=== PATIENT | male | born 1980 | race Caucasian/White ===

== ENCOUNTER 2020-03-07 13:38 | Inpatient (IN) | payer OTHER ==
[~2020-03-07] VITALS: Ht 180.3 cm; Wt 71.2 kg
--- NOTE | 2020-03-07 13:55 | NUR ---
YOUNGA RA[address] Homeless found on [address] c/o leg/foot pain". Patient a/ox4, breathing even and unlabored, no sob noted. Needs attended, kept comfortable.
[2020-03-07] MEDS ORDERED: ACETAMINOPHEN ES 500 MG TABLET PO ONE (14:00)
[2020-03-07] MEDS ORDERED: IV NS 0.9% 1,000 ML BAG IV ONE (14:00)
[2020-03-07] MEDS ORDERED: Thiamine 100 MG in IV D5W 50 ML IV SCH (14:00)
[2020-03-07] MEDS ORDERED: ACETAMINOPHEN ES 500 MG TABLET ONE (14:46)
[2020-03-07 14:54] LABS: BASOPHILS % (AUTO) 0.6 % (0.0-2.0); EOSINOPHILS % (AUTO) 0.2 % (0.0-6.0); HEMATOCRIT 47 % (39-51); HEMOGLOBIN 15.8 g/dL (13.5-17.5); LYMPHOCYTES # (AUTO) 1.5 /CMM (0.8-4.8); LYMPHOCYTES % (AUTO) 24.1 % (20.0-44.0); MEAN CORPUSCULAR HGB CONC 34 g/dl (31.0-36.0); MEAN CORPUSCULAR VOLUME 97 fL (80-96); MONOCYTES # (AUTO) 0.4 /CMM (0.1-1.30); NEUTROPHILS # (AUTO) 4.3 /CMM (1.8-8.9); NEUTROPHILS % (AUTO) 69.1 % (43.0-81.0); PLATELET COUNT (AUTO) 277 /CMM (150-450); RED BLOOD CELL COUNT(AUTO) 4.84 MIL/uL (4.5-6.0); WHITE BLOOD COUNT (AUTO) 6.2 K/uL (4.3-11.0)
[2020-03-07 15:14] LABS: CALCIUM, SERUM 8.8 mg/dL (8.5-10.1); CARBON DIOXIDE 27 mmol/L (21-32); CHLORIDE 100 mmol/L (98-107); CREATININE 1.4 mg/dL (0.6-1.3); GLUCOSE 100 mg/dL (74-106); POTASSIUM 4.6 mmol/L (3.5-5.1); SODIUM SERUM 139 mmol/L (136-145); UREA NITROGEN, BLOOD 13 mg/dL (7-18)
[2020-03-07] MEDS ORDERED: BUPR1FIL3 SL (15:15)
[2020-03-07 15:29] LABS: B-TYPE NATRIURETIC PEPTIDE 71 PG/ML (0-125)
--- NOTE | 2020-03-07 15:30 | NUR ---
COVID PCR SWAB DONE AND SENT TO LAB
[2020-03-07 16:49] LABS: APPEARANCE,URINE Clear (CLEAR); BILIRUBIN,URINE Negative (NEGATIVE); BLOOD, URINE Moderate Ery/uL (NEGATIVE); COLOR,URINE Yellow (YELLOW); KETONES,URINE Negative (NEGATIVE); LEUKOCYTE ESTERASE ,URINE Negative (NEGATIVE); NITRITE, URINE Negative (NEGATIVE); PH,URINE 6.5 (5.0-8.0); PROTEIN,URINE 30 mg/dl (NEGATIVE); UGLUCOSE Negative (NEGATIVE)
[2020-03-07] MEDS ORDERED: CIPROFLOXACIN HCL 500 MG TABLET ONE (16:59)
[2020-03-07] MEDS ORDERED: LORAZEPAM INJ 2 MG/ML VIAL ONE (17:00)
[2020-03-07] MEDS ORDERED: IV LR 1000 ML 1,000 ML IV ONE ×2 (17:00→17:30)
[2020-03-07] MEDS ORDERED: VANCOMYCIN HCL 1.25 GM in IV D5W 260 ML IV ONE (17:00)
[2020-03-07] MEDS ORDERED: CIPROFLOXACIN HCL 500 MG TABLET PO ONE (17:00)
[2020-03-07] MEDS ORDERED: LORAZEPAM INJ 2 MG/ML VIAL IV ONE (17:00)
[2020-03-07 17:04] LABS: BACTERIA,URINE Few /HPF (None Seen); SQUAMOUS EPITHELIAL CELL,UR Few /HPF (None Seen); WBC,URINE 0-2 /HPF (0-3)
--- NOTE | 2020-03-07 17:28 | NUR ---
FOOD TRAY PROVIDED. PATIENT TOLERATING PO WELL
[2020-03-07] MEDS ORDERED: MAGNESIUM HYDROXIDE 30 ML UDC PO PRN (18:00)
[2020-03-07] MEDS ORDERED: MAG HYDROX/AL HYDROX/SIMETH 30 ML UDC PO PRN (18:00)
[2020-03-07] MEDS ORDERED: ONDANSETRON HCL/PF 4 MG/2 ML VIAL IVP PRN (18:00)
[2020-03-07] MEDS ORDERED: Z GUARD REMEDY 2 OZ OINT TP PRN (18:00)
--- NOTE | 2020-03-07 18:14 | NUR ---
REPORT GIVEN TO JENNIFER WRAY OF [facility] UNIT
--- NOTE | 2020-03-07 18:16 | NUR ---
SPOKE TO [facility] [phone] FOR CLINICALS.
[2020-03-07 18:22] LABS: BILIRUBIN,DIRECT 0.2 mg/dL (0.0-0.2); BILIRUBIN,TOTAL 0.6 mg/dL (0.2-1.0)
[2020-03-07 18:41] LABS: ALBUMIN 3.6 g/dL (3.4-5.0); BILIRUBIN,DIRECT 0.3 mg/dL (0.0-0.2); BILIRUBIN,TOTAL 0.5 mg/dL (0.2-1.0); TOTAL PROTEIN, SERUM 8.7 g/dL (6.4-8.2)
--- NOTE | 2020-03-07 18:48 | NUR ---
[address] [place] [address]
--- NOTE | 2020-03-07 19:45 | NUR ---
RN ADMITTING NOTES PATIENT RECEIVED VIA GURNEY ACCOMPANIED BY ER STAFF. PATIENT A/O X 4. STABLE ON RA WITH BREATHING EVEN AND UNLABORED, NO SOB NOTED. NO SIGNS OF ACUTE DISTRESS. COMPLAINTS OF PAIN IN BLE 04/05. VITALS TAKEN 140/84 HR 64 RR 18 T 99.4 O2 98%. BELONGINGS ACCOUNTED FOR. SKIN ASSESSMENT DONE, PICTURES TAKEN. IV LOCATED ON [facility] #20. PATIENT ORIENTED TO ROOM AND STAFF. SAFETY PRECAUTIONS IN PLACE WITH BED IN LOWEST POSITION, CALL LIGHT WITHIN REACH, BREAKS ON, SIDE RAILS UP. WILL CONTINUE TO MONITOR THROUGHOUT THE NIGHT.
[2020-03-07 19:50] VITALS: BP 140/84
[2020-03-07] MEDS: IV NS 0.9% 1,000 ML IV PRN (20:14)
[2020-03-07] MEDS: ENOXAPARIN SODIUM 40 MG/0.4 ML DISP.SYRIN SQ SCH (20:15)
[2020-03-07] MEDS: MORPHINE SULFATE INJ 2 MG/ML DISP.SYRIN IV SCH (20:31)
[2020-03-08] MEDS: MORPHINE SULFATE INJ 2 MG/ML DISP.SYRIN IV SCH ×5 (00:39→20:08)
[2020-03-08] MEDS: VANCOMYCIN 1 GM in IV D5W 250 ML IV SCH ×2 (05:05→17:27)
[2020-03-08] MEDS: IV NS 0.9% 1,000 ML IV PRN ×2 (05:07→16:13)
--- NOTE | 2020-03-08 07:34 | NUR ---
RN CLOSING NOTES PATIENT RESTING IN BED A/O X 4. STABLE ON RA WITH BREATHING EVEN AND UNLABORED, NO SOB NOTED. NO SIGNS OF ACUTE DISTRESS. IV LOCATED ON [facility] #20 RUNNING NS @ 100 ML/HR. SAFETY PRECAUTIONS IN PLACE WITH BED IN LOWEST POSITION, CALL LIGHT WITHIN REACH, BREAKS ON, SIDE RAILS UP. ALL NEEDS ATTENDED TO. WILL ENDORSE TO ONCOMING SHIFT ABOUT GABRIEL.
[2020-03-08 07:41] LABS: BASOPHILS % (AUTO) 0.6 % (0.0-2.0); EOSINOPHILS % (AUTO) 2.5 % (0.0-6.0); HEMATOCRIT 41 % (39-51); HEMOGLOBIN 13.8 g/dL (13.5-17.5); LYMPHOCYTES # (AUTO) 1.2 /CMM (0.8-4.8); LYMPHOCYTES % (AUTO) 32.5 % (20.0-44.0); MEAN CORPUSCULAR HGB CONC 34 g/dl (31.0-36.0); MEAN CORPUSCULAR VOLUME 97 fL (80-96); MONOCYTES # (AUTO) 0.3 /CMM (0.1-1.30); MONOCYTES % (AUTO) 7.6 % (2.0-12.0); NEUTROPHILS # (AUTO) 2.1 /CMM (1.8-8.9); NEUTROPHILS % (AUTO) 56.8 % (43.0-81.0); PLATELET COUNT (AUTO) 168 /CMM (150-450); RED BLOOD CELL COUNT(AUTO) 4.23 MIL/uL (4.5-6.0); WHITE BLOOD COUNT (AUTO) 3.7 K/uL (4.3-11.0)
[2020-03-08 07:48] LABS: ALBUMIN 2.7 g/dL (3.4-5.0); BILIRUBIN,DIRECT 0.3 mg/dL (0.0-0.2); BILIRUBIN,TOTAL 0.9 mg/dL (0.2-1.0); CALCIUM, SERUM 8.2 mg/dL (8.5-10.1); CREATININE 0.7 mg/dL (0.6-1.3); MAGNESIUM 1.8 mg/dL (1.8-2.4); PHOSPHORUS 3.8 mg/dL (2.5-4.9); POTASSIUM 4.1 mmol/L (3.5-5.1); TOTAL PROTEIN, SERUM 6.7 g/dL (6.4-8.2)
[2020-03-08 07:55] LABS: THYROID STIMULATING HORMONE 4.565 uIU/mL (0.358-3.74)
[2020-03-08] MEDS: FOLIC ACID 1 MG TABLET PO SCH (08:16)
[2020-03-08] MEDS: THIAMINE HCL 100 MG TABLET PO SCH (08:16)
[2020-03-08 08:31] VITALS: BP 147/88
[2020-03-08] MEDS: LORAZEPAM INJ 2 MG/ML VIAL IV PRN (12:04)
[2020-03-08] MEDS: GABAPENTIN 100 MG CAPSULE PO SCH ×2 (12:04→16:13)
--- NOTE | 2020-03-08 14:50 | NUR ---
TRANSFER NOTES RECEIVED PATIENT VIA GURNEY A/O X 4 WITH NO SIGNS OF DISTRESS AND NO SOB. VITAL SIGNS WITHIN NORMAL LIMIT. IV [facility] #20G INTACT. PATIENT IS CURRENTLY COMPLAINING OF BILATERAL FOOT PAIN 9/10 PAIN SCALE. ORIENTED TO HIS ROOM CALL LIGHT WITHIN REACH. SAFETY MEASURES ARE APPLIED BED IS LOCKED AND LOW POSITION. SIDE RAILS UP X 2 FOR SAFETY. WILL CONTINUE TO MONITOR.
[2020-03-08 15:00] VITALS: BP 143/98
--- NOTE | 2020-03-08 15:10 | NUR ---
rn notes patient transferred to [facility] to [facility] [place].
--- NOTE | 2020-03-08 19:26 | NUR ---
MS RN CLOSING NOTES PATIENT IS A/O X 4 WITH NO SIGNS OF DISTRESS AND NO SOB IN ROOM AIR. IV L HAND #22G INTACT RUNNING NS AT 100 ML/HR. PATIENT REMAINED STABLE THROUGH OUT SHIFT. PATIENT KEPT CLEAN AND DRY. ALL NEEDS, CARE, TREATMENT AND MEDICATIONS ADMINISTERED ANTICIPATED PER ORDER. SAFETY MEASURES ARE APPLIED BED IS LOCKED AND LOW POSITION. SIDE RAILS UP X 2 FOR SAFETY. WILL ENDORSE TO THE NEXT PLASTIC BLOCK BOILER RELINER.
--- NOTE | 2020-03-08 19:48 | NUR ---
MS RN CLOSING NOTES PATIENT RESTING IN BED COMFORTABLY; A/OX4, BREATHING EVEN AND UNLABORED; TOLERATING ROOM AIR WELL; NO SOB NOTED; PATIENT ABLE TO MAKE NEEDS KNOWN; PATIENT COMPLAINING OF 10/10 GENERALIZED PAIN; VITALS STABLE; PATIENT INFORMED PAIN MED NOT YET DUE AT THIS TIME; PATIENT VERBALIZED UNDERSTANDING; L HAND # 22 INFUSING NS @ 100ML/HR; TOLERATING IVF WELL; SAFETY PRECAUTIONS IMPLEMENTED; BED LOCKED IN LOW POSITION; SIDE RAILSX2; CALL LIGHT WITHIN EASY REACH; WILL CONT TO MONITOR Addendum: 03/08/20 at 1949 by ARVIND MART RN MS RN OPENING NOTES*
[2020-03-08 20:00] VITALS: BP 146/97
[2020-03-08] MEDS: ENOXAPARIN SODIUM 40 MG/0.4 ML DISP.SYRIN SQ SCH (20:07)
[2020-03-08] MEDS: MUPIROCIN OINT 2% 22 GM TUBE NS SCH (20:15)
--- NOTE | 2020-03-08 20:23 | NUR ---
MS RN NOTES PATIENT COMPLAINT OF GENERALIZED AND BILATERAL FEET PAIN, 10/10, VITALS STABLE; PATIENT A/OX4, ABLE TO MAKE NEEDS KNOWN; MORPHINE ADMINISTERED PER MD ORDER; WILL CONT TO MONITOR
[2020-03-09 04:20] LABS: CALCIUM, SERUM 8.5 mg/dL (8.5-10.1); CREATININE 0.8 mg/dL (0.6-1.3); POTASSIUM 4.3 mmol/L (3.5-5.1)
[2020-03-09] MEDS: MORPHINE SULFATE INJ 2 MG/ML DISP.SYRIN IV SCH ×5 (04:27→20:38)
--- NOTE | 2020-03-09 04:33 | NUR ---
MS WRAY NOTES PATIENT IV OBTAINED, L INDEX FINGER #24; FLUSHING WELL; PER PATIENT, HE HAS BEEN GETTING MULTIPLE IV ACCESS PER SHIFT; PER DARIEN PATEL FOR MIDLINE INSERTION; WILL INFORM NURSING STUNNER ANIMAL Addendum: 03/09/20 at 0442 by ARVIND MART RN PATIENT COMPLAINT OF 04/05 PAIN; REQUESTING MORPHINE, PATIENT ABLE TO MAKE NEEDS KNOWN; A/OX4, BREATHING EVEN AND UNLABORED; MORPHINE IVP ADMINISTERED PER ORDER; WILL CONT TO MONITOR
[2020-03-09] MEDS: VANCOMYCIN 1 GM in IV D5W 250 ML IV SCH (04:43)
--- NOTE | 2020-03-09 06:36 | NUR ---
MS RN CLOSING NOTES PATIENT RESTING IN BED COMFORTABLY; A/OX4, BREATHING EVEN AND UNLABORED; NO SOB NOTED; TOLEARTING ROOM AIR WELL; L HAND # 24 INFUSING NS @ 100 ML/HR; TOLERATING WELL; ALL NEEDS RENDERED; PATIENT ABLE TO MAKE NEEDS KNOWN; MIDLINE INSERTION FOR LATER IN AM; NURSING INFIRMARY ATTENDANT AND CHARGE NURSE BOTH AWARE; WILL INFORM DAY SHIFT; SAFETY PRECAUTIONS IMPLEMENTED; BED LOCKED IN LOW POSITION; SIDE RAILSX2; CALL LIGHT WITHIN REACH; WILL ENDORSE TO ONCOMING SHIFT
--- NOTE | 2020-03-09 07:30 | NUR ---
MS/RN OPENING NOTE Received patient awake in bed, A&O x 4. Reports pain of 10/10 on BLE, last morphine given at 0457, will give medication once it is due. Nonpharmacological interventions done, such as teaching patient deep breathing exercises. Breathing even and non-labored on RA, no SOB noted. No cardiac distress noted. IV access located on L index finger #24, patent and intact, and flushing well. Midline access ordered and scheduled for today. Redness on left inner thigh noted. Sensation from all peripheral extremities intact. Bed locked to its lowest position, side rails x 2 up, bed alarm on, call light in reach. Instructed pt to use call light. Will continue with current medical management.
[2020-03-09 08:00] VITALS: BP 143/75
[2020-03-09] MEDS: FOLIC ACID 1 MG TABLET PO SCH (08:06)
[2020-03-09] MEDS: GABAPENTIN 100 MG CAPSULE PO SCH (08:06)
[2020-03-09] MEDS: THIAMINE HCL 100 MG TABLET PO SCH (08:06)
[2020-03-09] MEDS: MUPIROCIN OINT 2% 22 GM TUBE NS SCH ×2 (08:07→20:28)
[2020-03-09 09:13] LABS: BASOPHILS % (AUTO) 0.7 % (0.0-2.0); EOSINOPHILS % (AUTO) 4.6 % (0.0-6.0); HEMATOCRIT 42 % (39-51); HEMOGLOBIN 13.7 g/dL (13.5-17.5); LYMPHOCYTES # (AUTO) 0.8 /CMM (0.8-4.8); LYMPHOCYTES % (AUTO) 31.2 % (20.0-44.0); MEAN CORPUSCULAR HGB CONC 33 g/dl (31.0-36.0); MEAN CORPUSCULAR VOLUME 98 fL (80-96); MONOCYTES # (AUTO) 0.2 /CMM (0.1-1.30); MONOCYTES % (AUTO) 6.8 % (2.0-12.0); NEUTROPHILS # (AUTO) 1.5 /CMM (1.8-8.9); NEUTROPHILS % (AUTO) 56.7 % (43.0-81.0); PLATELET COUNT (AUTO) 140 /CMM (150-450); RED BLOOD CELL COUNT(AUTO) 4.34 MIL/uL (4.5-6.0); WHITE BLOOD COUNT (AUTO) 2.6 K/uL (4.3-11.0)
--- NOTE | 2020-03-09 10:26 | NUR ---
MS/RN NOTE Hospitalist called, stated to order psych consult for patient due to hx of bipolar disorder. Sent GPS the face sheet and psych referral for Dr. Lopez.
[2020-03-09] MEDS: GABAPENTIN 300 MG CAPSULE PO SCH ×2 (12:01→16:35)
--- NOTE | 2020-03-09 12:25 | NUR ---
RT EKG PER DR LOPEZ PERFORMED AT 12:23. RESULTS AND COPY GIVEN TO NILS CATALAN. NORMAL SINUS RHYTHM.
[2020-03-09 12:30] LABS: EOSINOPHILS % (MANUAL) 6 % (0-4); LYMPHOCYTES % (MANUAL) 28 % (16-48); MONOCYTES % (MANUAL) 5 % (0-11.0); NEUTROPHILS % (MANUAL) 61 (42-76)
--- NOTE | 2020-03-09 12:45 | NUR ---
MS/RN NOTE Edinson Vincent HULL AND DECK REMOVER at bedside, ordered crisis eval if patient will go AMA. Endorsed to charge nurse as well. Will frequently visit and continue to monitor patient for any signs of SI.
--- NOTE | 2020-03-09 13:15 | NUR ---
MS/RN NOTE Patient wants cheeseburger and fries for dinner. Initially, he prefers vegetarian food, but now wants to change to regular [facility] diet. Changed order and notified nutrition.
[2020-03-09 16:00] VITALS: BP 132/86
[2020-03-09] MEDS: VANCOMYCIN 1.25 GM in IV D5W 250 ML IV SCH (16:02)
--- NOTE | 2020-03-09 19:00 | NUR ---
MS/RN CLOSING NOTE Patient resting in bed, A&O x 4. All needs met and attended. Still complains of pain and discomfort on BLE, last morphine given at 1637. Breathing even and non-labored on RA, no SOB noted. No cardiac distress noted. ANTWAN midline, patent and intact, and flushing well. Sensation from all peripheral extremities intact. Fall precautions maintained. Will endorse to night filler nurse.
--- NOTE | 2020-03-09 19:42 | NUR ---
MS RN OPENING NOTES PATIENT RECEIVED RESTING IN BED COMFORTABLY; A/OX4, BREATHING EVEN AND UNLABORED; TOLERATING ROOM AIR WELL; NO SOB NOTED; ANTWAN MIDLINE # 18 INTACT AND PATENT, FLUSHING WELL, NO S/S OF REDNESS OR INFILTRATION NOTED; PATIENT UPSET AND MENTIONED PAIN MANAGEMENT NOT WORKING; PATIENT INFORMED PICTURES NEED TO BE TAKEN OF WOUNDS LATER IN THE SHIFT, PER PROTOCOL; PATIENT UPSET AND YELLED, "WHAT IS THE POINT OF THAT, I AM IN A LOT OF PAIN, JUST GIVE ME MY PAIN MEDICATION". PATIENT INFORMED PAIN MEDICATION IS NOT DUE YET; PATIENT FRUSTRATED BUT UNDERSTANDS, WILL WAIT UNTIL MEDICATION IS DUE; SAFETY PRECAUTIONS IMPLEMENTED; BED LOCKED IN LOW POSITION; SIDE RAILSX2; CALL LIGHT WITHIN REACH; WILL CONT TO MONITOR
[2020-03-09 20:00] VITALS: BP_SYST 112; BP_SYST 122; BP_DIAS 91
[2020-03-09] MEDS: ENOXAPARIN SODIUM 40 MG/0.4 ML DISP.SYRIN SQ SCH (20:30)
--- NOTE | 2020-03-09 20:36 | NUR ---
MS WRAY NOTES PATIENT REFUSING LOVENOX, PATIENT ONLY WANTS PAIN MEDICATION; PATIENT YELLING AND WOULD LIKE MORPHINE TO BE GIVEN EVEN IF IT IS NOT DUE YET; DUE IN 1 MORE HOUR; VITALS STABLE; PATIENT ABLE TO MAKE NEEDS KNOWN; WILL ADMINISTER PAIN MEDICATION PER MD ORDER, CHARGE NURSE AWARE; WILL CONT TO MONITOR Addendum: 03/09/20 at 2037 by ARVIND MART RN MEDICATION IS DUE, SCHEDULED [id number];
[2020-03-10] MEDS: MORPHINE SULFATE INJ 2 MG/ML DISP.SYRIN IV SCH ×4 (03:05→16:31)
--- NOTE | 2020-03-10 03:05 | NUR ---
MS RN NOTES PATIENT COMPLAINT OF 9/10 BLE PAIN; A/OX4, BREATHING EVEN AND UNLABORED; NO SOB NOTED; PATIENT ABLE TO MAKE NEEDS KNOWN; VITALS STABLE, PATIENT REQUESTING MORPHINE FOR PAIN MANAGEMENT; MORPHINE ADMINISTERED PER MD ORDER; WILL CONT TO MONITOR
[2020-03-10] MEDS: VANCOMYCIN 1.25 GM in IV D5W 250 ML IV SCH ×2 (03:09→16:34)
[2020-03-10] MEDS: IV NS 0.9% 1,000 ML IV PRN (06:07)
--- NOTE | 2020-03-10 06:40 | NUR ---
MS RN CLOSING NOTES PATIENT RESTING IN BED COMFORTABLY; A/OX4, BREATHING EVEN AND UNLABORED; TOLERATING ROOM AIR WELL, NO SOB NOTED; R UA MIDLINE # 18 INTACT AND PATENT, INFUSING NS @ 100 ML/HR; TOLERATING IVF WELL; LEARNING DISABILITIES RESOURCE TEACHER AT BEDSIDE, PATIENT REQUESTING FOR LABS TO BE DRAWN LATER; WILL INFORM DAY SHIFT; PATIENT ABLE TO MAKE NEEDS KNOWN; ALL NEEDS RENDERED; SAFETY PRECAUTIONS IMPLEMENTED; BED LOCKED IN LOW POSITION; SIDE RAILSX2; CALL LIGHT WITHIN REACH; WILL ENDORSE GABRIEL TO ONCOMING SHIFT
--- NOTE | 2020-03-10 07:37 | NUR ---
MS RN OPENING NOTES PATIENT IS AWAKE A/O X 4. WITH NO SIGNS OF DISTRESS AND NO SOB IN ROOM AIR. R UA MIDLINE INTACT RUNNING NS AT 100ML/HR. COMPLAIN ABOUT PAIN ON THE LEFT LEG 9/10 PAIN SCALE. SAFETY MEASURES ARE APPLIED, BED IS IN LOCKED AND IN LOW POSITION. SIDE RAILS UP X 2 FOR SAFETY. CALL LIGHT WITHIN REACH WILL CONTINUE TO MONITOR.
--- NOTE | 2020-03-10 07:58 | NUR ---
PATIENT COMPLAIN OF 9/10 LEFT LEG PAIN GAVE MORPHINE SCHEDULED PRN. VITAL SIGNS ARE STABLE BP 121/72 R 18 HR 67 SPO2 100%. WILL CONTINUE TO MONITOR.
[2020-03-10 08:00] VITALS: BP 121/72
[2020-03-10] MEDS: THIAMINE HCL 100 MG TABLET PO SCH (09:04)
[2020-03-10] MEDS: GABAPENTIN 300 MG CAPSULE PO SCH ×3 (09:04→16:31)
[2020-03-10] MEDS: FOLIC ACID 1 MG TABLET PO SCH (09:04)
[2020-03-10] MEDS: MUPIROCIN OINT 2% 22 GM TUBE NS SCH ×2 (09:10→20:26)
[2020-03-10 09:47] LABS: CALCIUM, SERUM 8.6 mg/dL (8.5-10.1); CREATININE 0.8 mg/dL (0.6-1.3); POTASSIUM 4.2 mmol/L (3.5-5.1)
[2020-03-10] MEDS: LORAZEPAM INJ 2 MG/ML VIAL IV PRN (09:50)
--- NOTE | 2020-03-10 10:35 | NUR ---
WOUND CARE CONSULT: PT PRESENTS WITH DRY ABRASIONS AND SCARRING WELL PATCHY AREAS OF PSORIASIS, PRESENT ON ADMISSION. RECOMMENDATIONS MADE FOR SKIN PROTECTION. DISCUSSED WITH NURSING STAFF. CURRENT MELISSA SCORE IS 21. Addendum: 03/10/20 at 1037 by SHAI MELCHOR WNDNU Amended: Links added.
[2020-03-10] MEDS ORDERED: IOHEXOL-300 100 ML VIAL IV ONE (10:52)
[2020-03-10] MEDS ORDERED: CT SWABBABLE VALVE TRANS SET 1 EA INFUS.SET MC ONE (10:52)
[2020-03-10] MEDS ORDERED: IV NS 0.9% 250 ML IV ONE (10:53)
[2020-03-10 10:58] LABS: ALBUMIN 3.1 g/dL (3.4-5.0); BILIRUBIN,DIRECT 0.3 mg/dL (0.0-0.2); BILIRUBIN,TOTAL 0.8 mg/dL (0.2-1.0); TOTAL PROTEIN, SERUM 7.2 g/dL (6.4-8.2)
[2020-03-10] MEDS: NICOTINE PATCH (14MG) 14 MG PATCH.TD24 TD SCH (11:34)
--- NOTE | 2020-03-10 12:22 | NUR ---
MS RN NOTES PATIENT COMPLAINT OF 9/10 LEFT LEG PAIN; A/OX4, BREATHING EVEN AND UNLABORED; NO SOB NOTED; PATIENT ABLE TO MAKE NEEDS KNOWN; BP 139/91 SPO2 97% HR 70, PATIENT REQUESTING MORPHINE FOR PAIN MANAGEMENT; MORPHINE ADMINISTERED PER MD ORDER; WILL CONT TO MONITOR
[2020-03-10 16:00] VITALS: BP 111/63
--- NOTE | 2020-03-10 19:37 | NUR ---
MS RN CLOSING NOTES PATIENT IS AWAKE A/O X 4. WITH NO SIGNS OF DISTRESS AND NO SOB IN ROOM AIR. R UA MIDLINE INTACT RUNNING NS AT 100ML/HR. NO COMPLAIN OF PAIN AT THIS MOMENT. PATIENT REMAINED STABLE THROUGH OUT SHIFT. PATIENT KEPT CLEAN AND DRY. ALL NEEDS, CARE, TREATMENT AND MEDICATIONS ADMINISTERED ANTICIPATED PER ORDER. SAFETY MEASURES ARE APPLIED, BED IS IN LOCKED AND IN LOW POSITION. SIDE RAILS UP X 2 FOR SAFETY. CALL LIGHT WITHIN REACH. WILL ENDORSE TO THE NEXT PROGRAM MANAGEMENT INTERN NURSE.
--- NOTE | 2020-03-10 19:41 | NUR ---
MS RN OPENING NOTE: Patient in bed awake, alert and oriented x 4. Patient able to make needs known. Patient breathing well on room air, no SOB or respiratory distress. Noted right upper arm midline, intact, dry, patent, no redness, or infiltration. Safety precaution is in place, bed is in the lowest level, side rails x2 are up, bed is locked, and call light is within reach. Will continue to monitor.
[2020-03-10 20:00] VITALS: BP 122/74
[2020-03-10] MEDS: ENOXAPARIN SODIUM 40 MG/0.4 ML DISP.SYRIN SQ SCH (20:23)
[2020-03-10] MEDS: MORPHINE SULFATE INJ 2 MG/ML DISP.SYRIN IV PRN (20:41)
[2020-03-10 21:09] VITALS: BP 122/74
--- NOTE | 2020-03-10 21:09 | NUR ---
MS RN NOTE: Patient complains of aching sharp pain from his groin down his left leg to his foot. Patient rates pain 9 on a 0-10 numerical scale. Administered PRN Morphine per MD order. Will continue to monitor.
--- NOTE | 2020-03-10 21:11 | NUR ---
MS RN NOTE: Reassessed pain. Patient rates pain 5 on a 0-10 scale and states Morphine was effective. Will continue to monitor.
[2020-03-11] MEDS: MORPHINE SULFATE INJ 2 MG/ML DISP.SYRIN IV PRN ×5 (00:56→17:30)
--- NOTE | 2020-03-11 00:56 | NUR ---
MS RN NOTE: Patient complains of left leg pain. Patient describes pain as sharp and aching. He rates pain 9 on a 0-10 numerical scale. Administered PRN Morphine per MD order. Will continue to monitor.
--- NOTE | 2020-03-11 01:26 | NUR ---
MS RN NOTE: Reassess pain. Patient states pain 5 on a 0-10 scale and stats medication was effective. Will continue to monitor.
[2020-03-11] MEDS: VANCOMYCIN 1.25 GM in IV D5W 250 ML IV SCH ×2 (03:09→16:12)
--- NOTE | 2020-03-11 05:17 | NUR ---
MS RN NOTE: Patient complains of left leg pain. Patient describes pain as aching and sharp and rates pain 8 on a 0-10 numerical scale. Administered PRN Morphine per MD order. Will continue to monitor.
--- NOTE | 2020-03-11 05:47 | NUR ---
MS RN NOTE: Reassessed patient pain. Patient rates pain 5 on a 0-10 scale and stated PRN Morphine effective. Will continue to monitor.
[2020-03-11 06:18] LABS: HIV SCRN 4G wRFX Non Reactive (Non Reactive)
--- NOTE | 2020-03-11 07:30 | NUR ---
MS RN NOTE: Patient in bed awake, alert, and oriented x4. Patient able to make needs known. Patient breathing well on room air. Breathing unlabored and equal. No SOB or respiratory distress noted. Safety precaution is in place, bed is in the lowest level, bed is locked, side rails x2 are up, and call light is within reach. Will endorse to next shift.
[2020-03-11 07:37] LABS: BASOPHILS % (AUTO) 0.9 % (0.0-2.0); EOSINOPHILS % (AUTO) 7.1 % (0.0-6.0); HEMATOCRIT 40 % (39-51); HEMOGLOBIN 13.2 g/dL (13.5-17.5); LYMPHOCYTES # (AUTO) 1.3 /CMM (0.8-4.8); LYMPHOCYTES % (AUTO) 40.6 % (20.0-44.0); MEAN CORPUSCULAR HGB CONC 33 g/dl (31.0-36.0); MEAN CORPUSCULAR VOLUME 97 fL (80-96); MONOCYTES # (AUTO) 0.2 /CMM (0.1-1.30); NEUTROPHILS # (AUTO) 1.5 /CMM (1.8-8.9); NEUTROPHILS % (AUTO) 45.4 % (43.0-81.0); PLATELET COUNT (AUTO) 134 /CMM (150-450); RED BLOOD CELL COUNT(AUTO) 4.14 MIL/uL (4.5-6.0); WHITE BLOOD COUNT (AUTO) 3.2 K/uL (4.3-11.0)
--- NOTE | 2020-03-11 07:50 | NUR ---
RN OPENING NOTE Patient is resting in bed, A/O x3 with periods of confusion, showing no signs of acute distress or SOB, stable on RA. ANTWAN midline is clean and intact flushing well. Bed is in lowest position, side rails x3 in upright position, call light is within reach, fall safety and aspiration precautions enforced. Will continue with plan of care.
[2020-03-11 08:00] VITALS: BP 133/80
[2020-03-11 08:00] LABS: ALBUMIN 2.9 g/dL (3.4-5.0); BILIRUBIN,DIRECT 0.3 mg/dL (0.0-0.2); BILIRUBIN,TOTAL 0.5 mg/dL (0.2-1.0); CALCIUM, SERUM 8.3 mg/dL (8.5-10.1); CREATININE 0.7 mg/dL (0.6-1.3); POTASSIUM 4.2 mmol/L (3.5-5.1); TOTAL PROTEIN, SERUM 6.8 g/dL (6.4-8.2)
[2020-03-11] MEDS: FOLIC ACID 1 MG TABLET PO SCH (08:43)
[2020-03-11] MEDS: NICOTINE PATCH (14MG) 14 MG PATCH.TD24 TD SCH (08:44)
[2020-03-11] MEDS: THIAMINE HCL 100 MG TABLET PO SCH (08:44)
[2020-03-11] MEDS: GABAPENTIN 300 MG CAPSULE PO SCH ×3 (08:44→16:12)
[2020-03-11] MEDS: MUPIROCIN OINT 2% 22 GM TUBE NS SCH (08:49)
[2020-03-11] MEDS: LORAZEPAM INJ 2 MG/ML VIAL IV PRN ×3 (10:45→20:41)
--- NOTE | 2020-03-11 12:31 | NUR ---
Greenhouse Or Nursery Transplanter consult requested by eDlvis Vincent NP as patient is homeless. Patient is alert and oriented x4. Patient asked this SW to return after he was done with his lunch. SW to return at a later time today.
[2020-03-11 13:00] VITALS: BP 130/80
--- NOTE | 2020-03-11 16:00 | NUR ---
RN NOTE Patient refused afternoon VS.
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
--- NOTE | 2020-03-11 17:55 | NUR ---
RN NOTE Patient refused skin assessment, photos and dressing change. Patient refused vital signs at this time.
[2020-03-11 18:00] VITALS: BP 135/81
[2020-03-11] MEDS ORDERED: Folic Acid PO (18:51)
[2020-03-11] MEDS ORDERED: GABA300C PO (18:51)
[2020-03-11] MEDS ORDERED: Thiamine HCL PO (18:51)
--- NOTE | 2020-03-11 19:58 | NUR ---
RN CLOSING NOTE Patient is resting in bed, A/O x3 with periods of confusion, showing no signs of acute distress or SOB, stable on RA. ANTWAN midline is clean and intact flushing well. Patient is medically cleared for DC. Patient refused skin assessment and refused photos and wound care. DC instructions provided and patient verbalized understanding. Patient refused to bring clothes that he came in with, stated he only wants to bring his bible. Report given to Gerry at [facility]. Bed is in lowest position, side rails x3 in upright position, call light is within reach, fall safety and aspiration precautions enforced. Will endorse to overnight babysitter. Ambulance ETA 2030.
--- NOTE | 2020-03-11 20:00 | NUR ---
MS RN OPENING NOTE: Patient in bed sleeping comfortably. Patient breathing well on room air, in no apparent respiratory distress, no SOB. breathing even and unlabored. Noted IV access on right upper arm midline, dry and intact, no redness or infiltration. Safety precaution is in place, bed is in the lowest level, bed is locked, side rails x2 are up, and call light is within reach. Will continue to monitor.
[2020-03-11 20:09] VITALS: BP 133/85
--- NOTE | 2020-03-11 20:41 | NUR ---
MS RN NOTE: Patient verbalizes anxiety. Patient irritable. Administered PRN Ativan per MD order. Will continue to monitor.
--- NOTE | 2020-03-11 21:23 | NUR ---
MS RN NOTE: Patient picked up by EMT. Patient is stable, breathing well on room air. No SOB or respiratory distress noted. Removed ANTWAN midline and ID band. Patient refused to bring his belonging except his bible. Patient left the unit at 2117.
== END 2020-03-11 21:20 | DRG 469 ==
LOC: ER 13:43 → TELE2 19:19 → MEDSG2 19:30 → MED 03-08 14:50
PROVIDERS: ADMIT Nurse Practitioner Acute Care; ATTEND Nurse Practitioner Acute Care
PROC: 05HY33Z Insertion of Infusion Device into Upper Vein, Percutaneous Approach (ICD-10-PCS; principal; 2020-03-11)
DX: N17.0 Acute kidney failure with tubular necrosis (principal); F10.239 Alcohol dependence with withdrawal, unspecified; L03.115 Cellulitis of right lower limb; E86.0 Dehydration; L03.116 Cellulitis of left lower limb; E87.1 Hypo-osmolality and hyponatremia; E87.2 Acidosis; Z59.0 Homelessness; F10.229 Alcohol dependence with intoxication, unspecified; G62.9 Polyneuropathy, unspecified; Z79.899 Other long term (current) drug therapy; Z83.3 Family history of diabetes mellitus; F41.9 Anxiety disorder, unspecified; F17.200 Nicotine dependence, unspecified, uncomplicated; E86.1 Hypovolemia; F31.9 Bipolar disorder, unspecified; F90.9 Attention-deficit hyperactivity disorder, unspecified type; Z91.5 Personal history of self-harm; F19.10 Other psychoactive substance abuse, uncomplicated
CPT/HCPCS: 36415; 70450-TC; 71045-TC; 72125-TC; 72128-TC; 72131-TC; 73630-TC; 80048-TC; 80061-TC; 80076-TC; 80202-TC; 80305; 81000-TC; 82247-TC; 82248-TC; 83605-TC; 83735-TC; 83880; 84100-TC; 84443-TC; 84550-TC; 85025-TC; 85730-TC; 86140-TC; 87040-TC; 87081-TC; 93970-TC; 97116-TC; 97530-TC; G0378; G0480; J1650; J2060; J2270; J3370; J3411; J7030; J7050; J7060; J7120; Q9967; U0003-CS

== ENCOUNTER 2020-03-13 18:43 | Emergency (ER) | payer OTHER ==
[~2020-03-13] VITALS: Ht 180.3 cm; Wt 70.8 kg
[~2020-03-13 18:43] MED LIST: Folic Acid PO; GABA300C PO; Thiamine HCL PO
--- NOTE | 2020-03-13 18:58 | NUR ---
Patient bib private ambulance, c/o of bilateral extremities pain. On room air, breathing evenly and unlabored. connected to the monitor and pulse ox. kept comfortable, will continue to monitor accordingly.
[2020-03-13] MEDS ORDERED: ACET-2605 PO (19:03)
[2020-03-13] MEDS ORDERED: FOLI0.4T2 PO (19:03)
[2020-03-13] MEDS ORDERED: GABA-532 PO (19:03)
[2020-03-13] MEDS ORDERED: THIA100T88 PO (19:03)
[2020-03-13] MEDS ORDERED: ACET-868 PO (19:03)
[2020-03-13] MEDS ORDERED: DOCU-141 PO (19:03)
[2020-03-13] MEDS ORDERED: BISA10SU11 RC (19:03)
[2020-03-13] MEDS ORDERED: MAGN400O6 PO (19:03)
[2020-03-13] MEDS ORDERED: HYDR-4384 PO (19:03)
[2020-03-13] MEDS ORDERED: NA P133E RC (19:03)
--- NOTE | 2020-03-13 19:05 | NUR ---
PT AAOX4. STATED HE IS +SI W PLAN TO "DRINK HIMSELF TO " PT PLACED IN BED 4 ON MONITOR AND PULSE OX. VSS. MULTIPLE OLD ABRASIONS NOTED ON PT'S BODY. NO ACUTE DISTRESS NOTED.
--- NOTE | 2020-03-13 19:11 | NUR ---
URINE COLLECTED AND SENT TO LAB
--- NOTE | 2020-03-13 19:15 | NUR ---
PHLIBOTOMIST AT BEDSIDE FOR LABS
--- NOTE | 2020-03-13 19:20 | NUR ---
WRONG MED PULLED OUT, WASTED.
[2020-03-13] MEDS ORDERED: HYDROCODONE/APAP 5/325MG TABLET ONE (19:22)
[2020-03-13 19:26] LABS: BASOPHILS % (AUTO) 0.6 % (0.0-2.0); EOSINOPHILS % (AUTO) 3.3 % (0.0-6.0); HEMATOCRIT 42 % (39-51); HEMOGLOBIN 13.9 g/dL (13.5-17.5); LYMPHOCYTES # (AUTO) 1.3 /CMM (0.8-4.8); LYMPHOCYTES % (AUTO) 30.3 % (20.0-44.0); MEAN CORPUSCULAR HGB CONC 33 g/dl (31.0-36.0); MEAN CORPUSCULAR VOLUME 98 fL (80-96); MONOCYTES # (AUTO) 0.3 /CMM (0.1-1.30); MONOCYTES % (AUTO) 6.8 % (2.0-12.0); NEUTROPHILS # (AUTO) 2.6 /CMM (1.8-8.9); PLATELET COUNT (AUTO) 158 /CMM (150-450); RED BLOOD CELL COUNT(AUTO) 4.26 MIL/uL (4.5-6.0); WHITE BLOOD COUNT (AUTO) 4.4 K/uL (4.3-11.0)
[2020-03-13] MEDS ORDERED: oxyCODONE/APAP (5/325 MG) 1 UDTAB TABLET PO ONE ×2 (19:30→23:30)
[2020-03-13] MEDS ORDERED: oxyCODONE/APAP (5/325 MG) 1 UDTAB TABLET ONE ×2 (19:31→23:11)
[2020-03-13 19:38] LABS: ALANINE AMINOTRANSFERASE 189 U/L (12-78); ALBUMIN 3.7 g/dL (3.4-5.0); ALCOHOL, BLOOD < 3 mg/dL (0-0); ALKALINE PHOSPHATASE 103 U/L (46-116); ASPARTATE AMINOTRANSFERASE 154 U/L (15-37); BILIRUBIN,DIRECT 0.2 mg/dL (0.0-0.2); BILIRUBIN,TOTAL 0.4 mg/dL (0.2-1.0); CARBON DIOXIDE 28 mmol/L (21-32); CHLORIDE 103 mmol/L (98-107); CREATININE 0.9 mg/dL (0.6-1.3); GLUCOSE 103 mg/dL (74-106); SODIUM SERUM 137 mmol/L (136-145); TOTAL PROTEIN, SERUM 7.8 g/dL (6.4-8.2); UREA NITROGEN, BLOOD 10 mg/dL (7-18)
--- NOTE | 2020-03-13 19:38 | NUR ---
PT MEDICATED AND PALCED ON MONITOR.
[2020-03-13 19:39] LABS: ACETAMINOPHEN < 2 ug/ml (10-30); SALICYLATE 1.1 mg/dL (2.8-20.0)
[2020-03-13 20:25] LABS: APPEARANCE,URINE Clear (CLEAR); BILIRUBIN,URINE Negative (NEGATIVE); BLOOD, URINE Negative Ery/uL (NEGATIVE); COLOR,URINE Yellow (YELLOW); KETONES,URINE Negative (NEGATIVE); LEUKOCYTE ESTERASE ,URINE Negative (NEGATIVE); NITRITE, URINE Negative (NEGATIVE); PROTEIN,URINE Negative (NEGATIVE); UGLUCOSE Negative (NEGATIVE); UROBILINOGEN,URINE 0.2 EU/dL (0.2)
--- NOTE | 2020-03-13 20:27 | NUR ---
PINK FROM CRISIS AT BEDSIDE
--- NOTE | 2020-03-13 21:40 | NUR ---
COVID SWAB SENT TO LAB
--- NOTE | 2020-03-13 23:04 | NUR ---
[facility] called for transport. Trip# [id number]
[2020-03-13 23:17] VITALS: BP 129/76
--- NOTE | 2020-03-13 23:18 | NUR ---
[facility] ETA 90 minutes.
--- NOTE | 2020-03-13 23:45 | NUR ---
REPORT GIVEN TO IGNACIO WRAY FOR GABRIEL
--- NOTE | 2020-03-13 23:58 | NUR ---
Sundeep newman in [facility] - 03/13/20 at 2359 by ELYSE REPORT GIVEN TO MARCK WRAY
--- NOTE | 2020-03-14 00:32 | NUR ---
REPORT GIVEN, PT TRANSFERED.
== END 2020-03-14 00:46 ==
LOC: ER 18:47
DX: R45.851 Suicidal ideations (principal); M79.605 Pain in left leg; M79.604 Pain in right leg; F31.9 Bipolar disorder, unspecified; F90.9 Attention-deficit hyperactivity disorder, unspecified type; F10.20 Alcohol dependence, uncomplicated; Y90.0 Blood alcohol level of less than 20 mg/100 ml; R74.0 Nonspecific elevation of levels of transaminase and lactic acid dehydrogenase [LDH]; Z59.0 Homelessness; F17.200 Nicotine dependence, unspecified, uncomplicated; Z20.828 Contact with and (suspected) exposure to other viral communicable diseases
CPT/HCPCS: 36415; 80048; 80076; 80305; 80307; 80329; 81001; 85025; 87426; 99285; C9803; G0480; 81000-TC